=== PATIENT | female | born 1990 | race Caucasian/White ===

== ENCOUNTER 2017-01-02 20:04 | Emergency (ER) | payer OTHER ==
[2017-01-02 20:15] VITALS: BP 115/76; PULSE 94; RESP 20; TEMP 98.3
[2017-01-02] MEDS ORDERED: ONDANSETRON 4 MG/2 ML VIAL IVP STA (20:40)
[2017-01-02] MEDS ORDERED: MORPHINE SULFATE 4 MG/ML SYRINGE IV STA (20:40)
[2017-01-02] MEDS ORDERED: KETOROLAC 30 MG/ML 1 ML VIAL IVP STA (20:40)
[2017-01-02] MEDS ORDERED: SODIUM CHLORIDE 0.9% 1,000 ML IV STA ×2 (20:40)
[2017-01-02 20:58] LABS: Basophils % (A) 0 %; CH 32.7; Eosinophils # (A) 0.1 k/uL (0-0.7); Eosinophils % (A) 2 %; HCT 40.2 % (34.0-46.0); HDW 2.51; HGB 13.9 gm/dL (11.4-16.0); Luc # (Auto) 0.12; Luc % (Auto) 2; Lymphocytes # (A) 2.3 k/uL (1.0-4.8); Lymphocytes % (A) 35 %; MCH 32.5 pg (25.0-35.0); MCHC 34.7 g/dL (31.0-37.0); MCV 93.7 fL (80.0-100.0); Mean Platelet Volume 7.8; Monocytes # (A) 0.4 k/uL (0-1.0); Monocytes % (A) 7 %; Neutrophils # (A) 3.5 k/uL (1.3-7.7); Neutrophils % (A) 54 %; RBC 4.29 m/uL (3.80-5.40); RDW 11.6 % (11.5-15.5); WBC 6.4 k/uL (3.8-10.6); WBC (Perox) 6.32
--- NOTE | 2017-01-02 21:07 | ED ---
Abdominal Pain HPI - General Chief Complaint: Abdominal Pain Stated Complaint: Abd Pain Time Seen by Provider: 01/02/17 20:19 Source: patient, RN notes reviewed, old records reviewed Mode of arrival: ambulatory Limitations: no limitations - History of Present Illness Initial Comments: This is a 26-year-old female presenting to the emergency Department chief complaint of acute right lower quadrant pain. Patient reports that she's had this pain go off and on no for the past month. She was seen earlier today at [facility]. Received a CAT scan, and blood work. They thought that she may have had a kidney stone but they did not see any ureter stones on the CAT scan. Patient reports that she's had history of ovarian cysts. states that she had her Nexplanon Replaced on December [address] Granados. Patient states that she was sent home with no nausea or pain medication. She reports that when she went home the pain returned and became more so she decided be reevaluated. Denies any nausea or vomiting. - Related Data Previous Rx's Medication Instructions Recorded Ondansetron Odt [Zofran Odt] 4 mg PO Q8HR PRN #12 tab 01/02/17 traMADol HCl [Ultram] 50 mg PO Q4H PRN #12 tab 01/02/17 Allergies Allergy/AdvReac Type Severity Reaction Status Date / Time Sulfa (Sulfonamide Allergy Rash/Hives Verified 01/02/17 22:50 Antibiotics) metoclopramide HCl AdvReac tachycardia Verified 01/02/17 22:50 [From Reglan] promethazine HCl AdvReac twitching Verified 01/02/17 22:50 [From Phenergan] Review of Systems ROS Statement: Those systems with pertinent positive or pertinent negative responses have been documented in the HPI. ROS Other: All systems not noted in ROS Statement are negative. Past Medical History Past Medical History: No Reported History Additional Past Medical History / Comment(s): Obstetric history: First was a vaginal delivery at 40 weeks, 8#. This is her second and she has had care with Dr Koo since 7 weeks gestation. O+ abs neg, Rub nonimmune, RPR NR, Hep B neg, HIV NR. GBS neg History of Any Multi-Drug Resistant Organisms: None Reported Past Surgical History: No Surgical Hx Reported Additional Past Surgical History / Comment(s): laparoscopy for ovarian cyst Past Anesthesia/Blood Transfusion Reactions: No Reported Reaction Past Psychological History: No Psychological Hx Reported Smoking Status: Current every day smoker Past Alcohol Use History: None Reported Past Drug Use History: None Reported General Exam - General Exam Comments Initial Comments: 26-year-old female, patient appears to be somewhat anxious. Limitations: no limitations General appearance: alert, in no apparent distress Head exam: Present: atraumatic, normocephalic, normal inspection Eye exam: Present: normal appearance, PERRL, EOMI. Absent: scleral icterus, conjunctival injection, periorbital swelling ENT exam: Present: normal exam, mucous membranes moist Neck exam: Present: normal inspection. Absent: tenderness, meningismus, lymphadenopathy Respiratory exam: Present: normal lung sounds bilaterally. Absent: respiratory distress, wheezes, rales, rhonchi, stridor Cardiovascular Exam: Present: regular rate, normal rhythm, normal heart sounds. Absent: systolic murmur, diastolic murmur, rubs, gallop, clicks GI/Abdominal exam: Present: soft, tenderness (Right lower quadrant tenderness.) , normal bowel sounds. Absent: distended, guarding, rebound, rigid External exam: Present: normal external exam. Absent: erythema Speculum exam: Present: normal speculum exam. Absent: erythema, vaginal discharge, cervical discharge, vaginal bleeding By manual exam: Present: normal by manual exam. Absent: cervical motion tenderness, adnexal tenderness, adnexal mass, uterine enlargement Extremities exam: Present: normal inspection, full ROM, normal capillary refill. Absent: tenderness, pedal edema, joint swelling, calf tenderness Back exam: Present: normal inspection Neurological exam: Present: alert, oriented X3, CN II-XII intact Psychiatric exam: Present: normal affect, normal mood Skin exam: Present: warm, dry, intact, normal color. Absent: rash Course Vital Signs 01/02/17 20:13 Temperature 98.3 F Pulse Rate 94 Respiratory 20 Rate Blood Pressure 115/76 O2 Sat by Pulse 99 Oximetry Medical Decision Making - Medical Decision Making This is a 26-year-old female presenting to the emergency Department chief complaint of acute right lower quadrant pain. Patient reports that she's had this pain go off and on no for the past month. She was seen earlier today at [facility]. Received a CAT scan, and blood work. They thought that she may have had a kidney stone but they did not see any ureter stones on the CAT scan. Patient reports that she's had history of ovarian cysts. states that she had her Nexplanon Replaced on December [address] Holcomb. Patient lab work was reviewed , negative for any acute process. Patient did receive a CAT scan earlier today and I did review these results which showed evidence of right renal colliculi. Patient's transvaginal ultrasound shows no evidence of any abnormalities. At this time patient will be discharged with a short course of pain medicine. Discussed follow up with PCP. REturn parameters discussed. - Lab Data Result diagrams: 01/02/17 20:41 01/02/17 20:41 Lab Results 01/02/17 01/02/17 01/02/17 Range/Units 20:41 20:41 22:27 WBC 6.4 (3.8-10.6) k/uL RBC 4.29 (3.80-5.40) m/uL Hgb 13.9 (11.4-16.0) gm/dL Hct 40.2 (34.0-46.0) % MCV 93.7 (80.0-100.0) fL MCH 32.5 (25.0-35.0) pg MCHC 34.7 (31.0-37.0) g/dL RDW 11.6 (11.5-15.5) % Plt Count 204 (150-450) k/uL Neutrophils % 54 % Lymphocytes % 35 % Monocytes % 7 % Eosinophils % 2 % Basophils % 0 % Neutrophils # 3.5 (1.3-7.7) k/uL Lymphocytes # 2.3 (1.0-4.8) k/uL Monocytes # 0.4 (0-1.0) k/uL Eosinophils # 0.1 (0-0.7) k/uL Basophils # 0.0 (0-0.2) k/uL Sodium 142 (137-145) mmol/L Potassium 3.9 (3.5-5.1) mmol/L Chloride 109 H (98-107) mmol/L Carbon Dioxide 22 (22-30) mmol/L Anion Gap 11 mmol/L BUN 12 (7-17) mg/dL Creatinine 0.63 (0.52-1.04) mg/dL Est GFR (MDRD) Af Amer >60 (>60 ml/min/1.73 sqM) Est GFR (MDRD) Non-Af >60 (>60 ml/min/1.73 sqM) Glucose 95 (74-99) mg/dL Calcium 9.5 (8.4-10.2) mg/dL Total Bilirubin 0.3 (0.2-1.3) mg/dL AST 18 (14-36) U/L ALT 33 (9-52) U/L Alkaline Phosphatase 97 (38-126) U/L Total Protein 6.5 (6.3-8.2) g/dL Albumin 3.9 (3.5-5.0) g/dL Amylase 54 (30-110) U/L Lipase 269 (23-300) U/L Urine Color Urine Appearance (Clear) Urine pH (5.0-8.0) Ur Specific [place] (1.001-1.035) Urine Protein (Negative) Urine Glucose (UA) (Negative) Urine Ketones (Negative) Urine Blood (Negative) Urine Nitrite (Negative) Urine Bilirubin (Negative) Urine Urobilinogen (<2.0) mg/dL Ur Leukocyte Esterase (Negative) Urine RBC (0-5) /hpf Urine WBC (0-5) /hpf Ur Squamous Epith Cells (0-4) /hpf Urine Mucus (None) /hpf Urine HCG, Qual Not Detected (Not Detectd) Trichomonas Ag (Rapid) (Negative) 01/02/17 01/02/17 Range/Units 22:27 22:27 WBC (3.8-10.6) k/uL RBC (3.80-5.40) m/uL Hgb (11.4-16.0) gm/dL Hct (34.0-46.0) % MCV (80.0-100.0) fL MCH (25.0-35.0) pg MCHC (31.0-37.0) g/dL RDW (11.5-15.5) % Plt Count (150-450) k/uL Neutrophils % % Lymphocytes % % Monocytes % % Eosinophils % % Basophils % % Neutrophils # (1.3-7.7) k/uL Lymphocytes # (1.0-4.8) k/uL Monocytes # (0-1.0) k/uL Eosinophils # (0-0.7) k/uL Basophils # (0-0.2) k/uL Sodium (137-145) mmol/L Potassium (3.5-5.1) mmol/L Chloride (98-107) mmol/L Carbon Dioxide (22-30) mmol/L Anion Gap mmol/L BUN (7-17) mg/dL Creatinine (0.52-1.04) mg/dL Est GFR (MDRD) Af Amer (>60 ml/min/1.73 sqM) Est GFR (MDRD) Non-Af (>60 ml/min/1.73 sqM) Glucose (74-99) mg/dL Calcium (8.4-10.2) mg/dL Total Bilirubin (0.2-1.3) mg/dL AST (14-36) U/L ALT (9-52) U/L Alkaline Phosphatase (38-126) U/L Total Protein (6.3-8.2) g/dL Albumin (3.5-5.0) g/dL Amylase (30-110) U/L Lipase (23-300) U/L Urine Color Yellow Urine Appearance Cloudy H (Clear) Urine pH 6.0 (5.0-8.0) Ur Specific [place] 1.020 (1.001-1.035) Urine Protein Negative (Negative) Urine Glucose (UA) Negative (Negative) Urine Ketones 1+ H (Negative) Urine Blood Small H (Negative) Urine Nitrite Negative (Negative) Urine Bilirubin Negative (Negative) Urine Urobilinogen <2.0 (<2.0) mg/dL Ur Leukocyte Esterase Negative (Negative) Urine RBC 9 H (0-5) /hpf Urine WBC 1 (0-5) /hpf Ur Squamous Epith Cells 3 (0-4) /hpf Urine Mucus Rare H (None) /hpf Urine HCG, Qual (Not Detectd) Trichomonas Ag (Rapid) Negative (Negative) - Radiology Data Radiology results: report reviewed Disposition Clinical Impression: RLQ abdominal pain, Hematuria Disposition: HOME SELF-CARE Condition: Good Instructions: Abdominal Pain (ED) Additional Instructions: Advised to take the pain medication, and follow up with PCP. Return to ED if any alarming signs or symptoms. Prescriptions: Ondansetron Odt [Zofran Odt] 4 mg PO Q8HR PRN #12 tab PRN Reason: Nausea traMADol HCl [Ultram] 50 mg PO Q4H PRN #12 tab PRN Reason: Pain Referrals: Jose Angel Nuñez MD [Primary Care Provider] - 1-2 days Time of Disposition: 23:11
[2017-01-02 21:12] LABS: ALT 33 U/L (9-52); AST 18 U/L (14-36); Alkaline Phosphatase 97 U/L (38-126); Amylase 54 U/L (30-110); Anion Gap 11 mmol/L; Blood Urea Nitrogen 12 mg/dL (7-17); Calcium 9.5 mg/dL (8.4-10.2); Carbon Dioxide 22 mmol/L (22-30); Chloride 109 mmol/L (98-107); Glucose 95 mg/dL (74-99); Non-African American GFR(MDRD) >60 (>60 ml/min/1.73 sqM); Potassium 3.9 mmol/L (3.5-5.1); Sodium 142 mmol/L (137-145); Total Bilirubin 0.3 mg/dL (0.2-1.3); Total Protein 6.5 g/dL (6.3-8.2)
--- NOTE | 2017-01-02 22:00 | US ---
EXAMINATION TYPE: US transvaginal DATE OF EXAM: 01/02/2017 COMPARISON: NONE CLINICAL HISTORY: Pain. RLQ pain TECHNIQUE: Transvaginal (TV) Date of LMP: Unknown EXAM MEASUREMENTS: Uterus: 7.4 x 3.6 4.5 cm Endometrial Stripe: 0.5 cm Right Ovary: 2.1 x 1.6 x 1.6 cm Left Ovary: 3.1 x 1.3 x 1.3 cm 1. Uterus: Anteverted wnl 2. Endometrium: wnl 3. Right Ovary: wnl 4. Left Ovary: wnl Spectral, color and waveform doppler imaging shows good arterial and venous flow within the ovaries ; there is no evidence for ovarian torsion. 5. Bilateral Adnexa: wnl 6. Posterior cul-de-sac: wnl Bilateral ovarian doppler flow visualized IMPRESSION: Normal uterus and endometrium. Negative transvaginal pelvic sonogram.
[2017-01-02 22:52] LABS: Appearance,Urine Cloudy (Clear); Bilirubin,Urine Negative (Negative); Glucose,Urine (UA) Negative (Negative); Ketones,Urine 1+ (Negative); Leukocyte Esterase,Urine Negative (Negative); Mucus,Urine Rare /hpf; Nitrite,Urine Negative (Negative); Particle Count 4617; Protein,Urine Negative (Negative); RBC,Urine 9 /hpf (0-5); Squamous Epithelial Cell,Urine 3 /hpf (0-4); UA Billing (MACRO vs. MICRO) MICRO; Urobilinogen,Urine <2.0 mg/dL (<2.0); WBC,Urine 1 /hpf (0-5)
== END 2017-01-02 23:26 | disposition home or self-care (01) ==
LOC: EC 20:04
DX: R10.31 Right lower quadrant pain (principal); R31.9 Hematuria, unspecified; F17.200 Nicotine dependence, unspecified, uncomplicated; Z88.2 Allergy status to sulfonamides; Z88.8 Allergy status to other drugs, medicaments and biological substances
CPT/HCPCS: 36415; 80053; 87591; 87491; 82150; 83690; 85025; 81001; 81025; 87808; 87070; 87205; 76830; 99285; 96374; 96375 ×2; 96361 ×2; J2270; J2405; J1885

== ENCOUNTER → 2017-11-11 | Outpatient (CLI) | payer OTHER ==
--- NOTE | 2017-11-11 22:38 | US ---
EXAMINATION TYPE: US kidneys/renal and bladder DATE OF EXAM: 11/11/2017 COMPARISON: NONE CLINICAL HISTORY: 27-year-old female Kidney Stone N20.0. Right flank pain. History of kidney stones TECHNIQUE: Multiple sonographic images of the kidneys and bladder are obtained. FINDINGS: Right Kidney: 11.7 x 4.8 x 4.8 cm with mild hydronephrosis. There is an 8 mm echogenic calculus at t he lower pole. Left Kidney: 10.5 x 5.3 x 5.4 cm without hydronephrosis. Bladder: appears wnl as visualized Bilateral Jets seen: yes , but the right ureteral jet appears slightly weaker. IMPRESSION: Mild hydronephrosis on the right. In addition, there is an 8 mm lower pole right renal calculus.
== END | disposition home or self-care (01) ==
LOC: RADUSWWP 15:11
PROVIDERS: ATTEND Family Medicine
DX: N13.30 Unspecified hydronephrosis (principal); N20.0 Calculus of kidney; Z88.8 Allergy status to other drugs, medicaments and biological substances; Z88.2 Allergy status to sulfonamides
CPT/HCPCS: 76770

== ENCOUNTER 2018-02-13 17:00 | Emergency (ER) | payer OTHER ==
[2018-02-13] MEDS ORDERED: LIDOCAINE 1% INJ 10MG/ML (20 ML MDV) SQ STA (17:46)
--- NOTE | 2018-02-13 18:12 | ED ---
Extremity Problem HPI - General Chief complaint: Extremity Problem,Nontraumatic Stated complaint: Ingrown toenail, foot swelling Time Seen by Provider: 02/13/18 17:25 Source: patient, RN notes reviewed, old records reviewed Mode of arrival: ambulatory Limitations: no limitations - History of Present Illness Initial comments: Patient is a 27 year old female, that states about 2 weeks ago she cut her toe nails short and thought she developed an ingrown toe nail on her left big toe. Patient has been on Keflex for 6 days. Patient reports she tried to dig out her nail, but was unable to. She sees currency exchange specialist on Friday. - Related Data Previous Rx's Medication Instructions Recorded Ondansetron Odt [Zofran Odt] 4 mg PO Q8HR PRN #12 tab 01/02/17 traMADol HCl [Ultram] 50 mg PO Q4H PRN #12 tab 01/02/17 Ciprofloxacin HCl [Cipro] 500 mg PO Q12HR 10 Days tab 02/13/18 Allergies Allergy/AdvReac Type Severity Reaction Status Date / Time Sulfa (Sulfonamide Allergy Rash/Hives Verified 02/13/18 17:17 Antibiotics) metoclopramide HCl AdvReac tachycardia Verified 02/13/18 17:17 [From Reglan] promethazine HCl AdvReac twitching Verified 02/13/18 17:17 [From Phenergan] Review of Systems ROS Statement: Those systems with pertinent positive or pertinent negative responses have been documented in the HPI. ROS Other: All systems not noted in ROS Statement are negative. Past Medical History Past Medical History: No Reported History Additional Past Medical History / Comment(s): Obstetric history: First was a vaginal delivery at 40 weeks, 8#. This is her second and she has had care with Dr Koo since 7 weeks gestation. O+ abs neg, Rub nonimmune, RPR NR, Hep B neg, HIV NR. GBS neg History of Any Multi-Drug Resistant Organisms: None Reported Past Surgical History: No Surgical Hx Reported Additional Past Surgical History / Comment(s): laparoscopy for ovarian cyst Past Anesthesia/Blood Transfusion Reactions: No Reported Reaction Past Psychological History: No Psychological Hx Reported Smoking Status: Current every day smoker Past Alcohol Use History: None Reported Past Drug Use History: None Reported General Exam - General Exam Comments Initial Comments: 27 year old female, no acute distress. Limitations: no limitations General appearance: alert, in no apparent distress Head exam: Present: atraumatic, normocephalic, normal inspection Eye exam: Present: normal appearance, PERRL, EOMI. Absent: scleral icterus, conjunctival injection, periorbital swelling ENT exam: Present: normal exam, mucous membranes moist Neck exam: Present: normal inspection. Absent: tenderness, meningismus, lymphadenopathy Respiratory exam: Present: normal lung sounds bilaterally. Absent: respiratory distress, wheezes, rales, rhonchi, stridor Left Ankle exam: Present: normal inspection, full ROM Foot/Toe exam: Present: tenderness, swelling (over medial great toenail). Absent: normal inspection Neurovascular tendon exam: Present: no vascular compromise 1 - Swelling, erythema Course Vital Signs 02/13/18 02/13/18 17:15 18:50 Temperature 98.1 F 98.7 F Pulse Rate 100 68 Respiratory 20 16 Rate Blood Pressure 128/81 115/55 O2 Sat by Pulse 99 98 Oximetry Medical Decision Making - Medical Decision Making This is a 27 year old female with left ingrown toenail. Toenail was cleaned with iodine, then 5mls of 1% lidocaine instilled by digital nerve block. Patient nail was then dissected from the swollen edge of the toe and removed. Discussed changing antibiotic to cipro. No culture of pus obtained. Discussed continue to follow up with podiatry. Discussed warm soaks over the toe. Return parameters discussed. Disposition Clinical Impression: Ingrown toenail of left foot Disposition: HOME SELF-CARE Condition: Good Instructions: Ingrown Nail (ED) Additional Instructions: Patient advisd to do any frequent warm soaks of the area. Follow-up with PCP. Return to emergency department if any alarming signs or symptoms occur. Prescriptions: Ciprofloxacin HCl [Cipro] 500 mg PO Q12HR 10 Days tab Is patient prescribed a controlled substance at d/c from ED?: No Referrals: Jose Angel Nuñez MD [Primary Care Provider] - 1-2 days Time of Disposition: 18:11
[2018-02-13 18:54] VITALS: BP 115/55; PULSE 68; RESP 16; TEMP 98.7
--- NOTE | 2018-02-14 06:04 | CDI ---
Documentation Clarification OP Dear MATTHEW Haque: Please do addendum to ED report for HPI , Physical exam and MDM. Thank you, Marely Sanchez Outreach Worker If you have any question, Please contact regional account manager at [phone] [facility]
== END 2018-02-13 18:50 | disposition home or self-care (01) ==
LOC: EC 17:00
DX: L60.0 Ingrowing nail (principal); F17.200 Nicotine dependence, unspecified, uncomplicated; Z88.2 Allergy status to sulfonamides; Z88.8 Allergy status to other drugs, medicaments and biological substances
CPT/HCPCS: 99283; 11730; J2001

== ENCOUNTER → 2019-03-24 | Outpatient (CLI) | payer OTHER ==
--- NOTE | 2019-03-24 16:09 | XR ---
EXAMINATION TYPE: XR IVP DATE OF EXAM: 03/24/2019 COMPARISON: Abdomen 08/22/2011 HISTORY: Urinary incontinence TECHNIQUE: IVP is performed following the intravenous administration of 100 mL [id number]. FINDINGS: There is a calcification over the mid right kidney measuring 0.7 cm. There is a calcificati on in left hemipelvis likely a phlebolith 0.4 cm. Psoas margins are normal There is prompt uptake and excretion of the contrast bilaterally. There is delayed excretion on the r ight which appears subtle compared to the left at 1 minute. The left ureter follows a normal caliber course and contour to the urinary bladder. Left renal infundibulum I renal pelvis is normal. There is dilation of the right renal calyces infundibula and renal pelvis. Proximal right ureter has mild pro minence to the level of the pelvic inlet. There is delayed contrast passing beyond the pelvic inlet. There is some cutoff of the distal ureter at the level of the pelvic inlet suggestive for overlying vascular structures. This may be present bi laterally. Distal ureters are unremarkable. Urinary bladder fills normally without intraluminal or extramural defects. There is normal post void residual. IMPRESSION: 1. Mild hesitancy and mild hydronephrosis of the right kidney. 2. 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 Hesitancy is present on the right compared to the left.
== END | disposition home or self-care (01) ==
LOC: RADFLMAIN 10:07
PROVIDERS: ATTEND Family Medicine
DX: N13.30 Unspecified hydronephrosis (principal); R39.11 Hesitancy of micturition; Z88.1 Allergy status to other antibiotic agents; Z88.2 Allergy status to sulfonamides
CPT/HCPCS: 74400; Q9967

== ENCOUNTER 2019-04-04 14:05 | Emergency (ER) | payer OTHER ==
[2019-04-04 15:02] VITALS: RESP 16; TEMP 98
[2019-04-04] MEDS ORDERED: SODIUM CHLORIDE 0.9% 1,000 ML IV STA (15:50)
[2019-04-04] MEDS ORDERED: ONDANSETRON 4 MG/2 ML VIAL IVP STA (15:50)
[2019-04-04] MEDS ORDERED: KETOROLAC 30 MG/ML 1 ML VIAL IVP STA (15:50)
[2019-04-04 15:56] LABS: Appearance,Urine Cloudy (Clear); Bacteria,Urine Occasional /hpf; Bilirubin,Urine Negative (Negative); Blood,Urine Moderate (Negative); Color,Urine Yellow; Glucose,Urine (UA) Negative (Negative); Ketones,Urine Negative (Negative); Leukocyte Esterase,Urine Negative (Negative); Mucus,Urine Moderate /hpf; Nitrite,Urine Negative (Negative); PH, Urine 5.5 (5.0-8.0); Protein,Urine Negative (Negative); RBC,Urine 152 /hpf (0-5); Specific Gravity,Urine 1.014 (1.001-1.035); Squamous Epithelial Cell,Urine 35 /hpf (0-4); Urobilinogen,Urine <2.0 mg/dL (<2.0); WBC,Urine 2 /hpf (0-5)
--- NOTE | 2019-04-04 16:24 | ED ---
Female Urogenital HPI - General Chief complaint: Urogenital Stated complaint: poss kidney stone Time Seen by Provider: 04/04/19 15:23 Source: patient Limitations: no limitations - History of Present Illness Initial comments: Patient is a 28-year-old female presenting to the emergency Department with complaints of right-sided flank pain that started yesterday. Patient states she went to [facility] yesterday for evaluation and had lab work as well as a computed tomography scan performed. She states the computed tomography scan showed a right kidney stone as well as an ovarian cyst. Patient states she returned today to the ER because she feels like she does not take well taken care of at the other hospital and feels like she is very sick. She is complaining of fatigue as well as nausea. Patient states she is having history of kidney stones and this feels similar. Patient has history of kidney issues and recently had an x-ray IVP on 03/24/[address] Nuñez. The results were reviewed and showed a right-sided kidney stone measuring 7 mm. Patient is also complaining of intermittent chest pain when her right flank pain intensifies. Patient states his episodes only last a few seconds. She is not presently having chest pain. Patient denies shortness of breath, fever, chills. Patient has no other complaints at this time. Upon arrival to the ER, her vital signs are stable. Of note, patient states she is currently being worked up for a possible autoimmune disease. - Related Data Previous Rx's Medication Instructions Recorded Ondansetron Odt [Zofran Odt] 4 mg PO Q8HR PRN #12 tab 01/02/17 traMADol HCl [Ultram] 50 mg PO Q4H PRN #12 tab 01/02/17 Ciprofloxacin HCl [Cipro] 500 mg PO Q12HR 10 Days tab 02/13/18 Ketorolac [Toradol] 10 mg PO Q8HR #15 tab 04/04/19 Ondansetron Odt [Zofran Odt] 4 mg PO Q8HR PRN #10 tab 04/04/19 Allergies Allergy/AdvReac Type Severity Reaction Status Date / Time Sulfa (Sulfonamide Allergy Rash/Hives Verified 04/04/19 15:02 Antibiotics) metoclopramide HCl AdvReac tachycardia Verified 04/04/19 15:02 [From Reglan] promethazine HCl AdvReac twitching Verified 04/04/19 15:02 [From Phenergan] Review of Systems ROS Statement: Those systems with pertinent positive or pertinent negative responses have been documented in the HPI. ROS Other: All systems not noted in ROS Statement are negative. Past Medical History Past Medical History: No Reported History Additional Past Medical History / Comment(s): Obstetric history: First was a vaginal delivery at 40 weeks, 8#. This is her second and she has had care with Dr Koo since 7 weeks gestation. O+ abs neg, Rub nonimmune, RPR NR, Hep B neg, HIV NR. GBS neg History of Any Multi-Drug Resistant Organisms: None Reported Past Surgical History: No Surgical Hx Reported Additional Past Surgical History / Comment(s): laparoscopy for ovarian cyst Past Anesthesia/Blood Transfusion Reactions: No Reported Reaction Past Psychological History: No Psychological Hx Reported Smoking Status: Current every day smoker Past Alcohol Use History: None Reported Past Drug Use History: None Reported General Exam - General Exam Comments Initial Comments: GENERAL: Well-appearing, well-nourished and in no acute distress, but looks uncomfortable laying on her right side. HEAD: Atraumatic, normocephalic. EYES: Pupils equal round and reactive to light, extraocular movements intact, sclera anicteric, conjunctiva are normal. ENT: TMs normal, nares patent, oropharynx clear without exudates. Moist mucous mem branes. NECK: Normal range of motion, supple without lymphadenopathy or JVD. LUNGS: Breath sounds clear to auscultation bilaterally and equal. No wheezes rales or rhonchi. HEART: Regular rate and rhythm without murmurs, rubs or gallops. ABDOMEN: Right-sided abdominal pain, right flank pain. Soft, normoactive bowel sounds. No guarding, no rebound. No masses appreciated. : Deferred, declined EXTREMITIES: Normal range of motion, no pitting or edema. No clubbing or cyanosis. NEUROLOGICAL: Normal speech, normal gait. PSYCH: Normal mood, normal affect. SKIN: Warm, Dry, normal turgor, no rashes or lesions noted. Limitations: no limitations Course Vital Signs 04/04/19 04/04/19 04/04/19 15:00 15:02 16:02 Temperature 98 F Pulse Rate 96 89 80 Respiratory 16 16 16 Rate Blood Pressure 113/81 120/75 114/78 O2 Sat by Pulse 98 98 98 Oximetry 04/04/19 17:02 Temperature Pulse Rate 90 Respiratory 16 Rate Blood Pressure 116/80 O2 Sat by Pulse 98 Oximetry Medical Decision Making - Medical Decision Making Patient is a 28-year-old female presenting with right-sided flank pain for 2 days. Patient was seen at [facility] yesterday and had computed tomography scan. Results were reviewed. Vital signs are stable, afebrile. Patient is also complaining of intermittent chest pain. She thinks it is due to her anxiety. EKG is normal. Lab work shows no acute abnormalities. Troponin is normal. UA shows no signs of infection, moderate amount of blood. A KUB shows 5 mm renal stone in the lower pole right kidney. No other acute abnormalities. Patient was given fluids, Toradol, Zofran and she reports improvement in her symptoms. I recommended a vaginal exam secondary to a right ovarian cyst that was seen on computed tomography scan yesterday. Patient declined at this time stating she does see her P[facility]ER HANGER at the end of this week. Patient is stable for discharge at this time. I reviewed all findings with patient. Patient will be discharged home with Toradol as well as Zofran as needed for symptom control. Patient will also follow up with her urologist next week. Patient is in agreement with this plan of care. Return parameters were discussed with the patient she verbalized understanding. Case discussed with Dr. Osorio. - Lab Data Result diagrams: 04/04/19 16:02 04/04/19 16:02 Lab Results 04/04/19 04/04/19 04/04/19 Range/Units 14:00 16:02 16:02 WBC 2.9 L (3.8-10.6) k/uL RBC 4.06 (3.80-5.40) m/uL Hgb 13.7 (11.4-16.0) gm/dL Hct 38.9 (34.0-46.0) % MCV 95.8 (80.0-100.0) fL MCH 33.7 (25.0-35.0) pg MCHC 35.2 (31.0-37.0) g/dL RDW 11.4 L (11.5-15.5) % Plt Count 175 (150-450) k/uL Neutrophils % 48 % Lymphocytes % 42 % Monocytes % 6 % Eosinophils % 3 % Basophils % 0 % Neutrophils # 1.4 (1.3-7.7) k/uL Lymphocytes # 1.2 (1.0-4.8) k/uL Monocytes # 0.2 (0-1.0) k/uL Eosinophils # 0.1 (0-0.7) k/uL Basophils # 0.0 (0-0.2) k/uL Sodium 138 (137-145) mmol/L Potassium 4.1 (3.5-5.1) mmol/L Chloride 107 (98-107) mmol/L Carbon Dioxide 23 (22-30) mmol/L Anion Gap 8 mmol/L BUN 7 (7-17) mg/dL Creatinine 0.54 (0.52-1.04) mg/dL Est GFR (CKD-EPI)AfAm >90 (>60 ml/min/1.73 sqM) Est GFR (CKD-EPI)NonAf >90 (>60 ml/min/1.73 sqM) Glucose 77 (74-99) mg/dL Calcium 8.8 (8.4-10.2) mg/dL Total Bilirubin 0.3 (0.2-1.3) mg/dL AST 24 (14-36) U/L ALT 28 (4-34) U/L Alkaline Phosphatase 91 (38-126) U/L Troponin I (0.000-0.034) ng/mL Total Protein 6.4 (6.3-8.2) g/dL Albumin 3.9 (3.5-5.0) g/dL Urine Color Yellow Urine Appearance Cloudy H (Clear) Urine pH 5.5 (5.0-8.0) Ur Specific [place] 1.014 (1.001-1.035) Urine Protein Negative (Negative) Urine Glucose (UA) Negative (Negative) Urine Ketones Negative (Negative) Urine Blood Moderate H (Negative) Urine Nitrite Negative (Negative) Urine Bilirubin Negative (Negative) Urine Urobilinogen <2.0 (<2.0) mg/dL Ur Leukocyte Esterase Negative (Negative) Urine RBC 152 H (0-5) /hpf Urine WBC 2 (0-5) /hpf Ur Squamous Epith Cells 35 H (0-4) /hpf Urine Bacteria Occasional H (None) /hpf Urine Mucus Moderate H (None) /hpf 12/29/19 Range/Units 16:02 WBC (3.8-10.6) k/uL RBC (3.80-5.40) m/uL Hgb (11.4-16.0) gm/dL Hct (34.0-46.0) % MCV (80.0-100.0) fL MCH (25.0-35.0) pg MCHC (31.0-37.0) g/dL RDW (11.5-15.5) % Plt Count (150-450) k/uL Neutrophils % % Lymphocytes % % Monocytes % % Eosinophils % % Basophils % % Neutrophils # (1.3-7.7) k/uL Lymphocytes # (1.0-4.8) k/uL Monocytes # (0-1.0) k/uL Eosinophils # (0-0.7) k/uL Basophils # (0-0.2) k/uL Sodium (137-145) mmol/L Potassium (3.5-5.1) mmol/L Chloride (98-107) mmol/L Carbon Dioxide (22-30) mmol/L Anion Gap mmol/L BUN (7-17) mg/dL Creatinine (0.52-1.04) mg/dL Est GFR (CKD-EPI)AfAm (>60 ml/min/1.73 sqM) Est GFR (CKD-EPI)NonAf (>60 ml/min/1.73 sqM) Glucose (74-99) mg/dL Calcium (8.4-10.2) mg/dL Total Bilirubin (0.2-1.3) mg/dL AST (14-36) U/L ALT (4-34) U/L Alkaline Phosphatase (38-126) U/L Troponin I <0.012 (0.000-0.034) ng/mL Total Protein (6.3-8.2) g/dL Albumin (3.5-5.0) g/dL Urine Color Urine Appearance (Clear) Urine pH (5.0-8.0) Ur Specific [place] (1.001-1.035) Urine Protein (Negative) Urine Glucose (UA) (Negative) Urine Ketones (Negative) Urine Blood (Negative) Urine Nitrite (Negative) Urine Bilirubin (Negative) Urine Urobilinogen (<2.0) mg/dL Ur Leukocyte Esterase (Negative) Urine RBC (0-5) /hpf Urine WBC (0-5) /hpf Ur Squamous Epith Cells (0-4) /hpf Urine Bacteria (None) /hpf Urine Mucus (None) /hpf - EKG Data EKG Comments: Ventricular rate 60, AL interval 158, QTC 420. Normal sinus rhythm, normal ECG. No acute ST segment changes. Disposition Clinical Impression: Right renal stone, Right sided abdominal pain Disposition: HOME SELF-CARE Condition: Stable Instructions (If sedation given, give patient instructions): Kidney Stones (ED) Additional Instructions: Please return to the Emergency Department if symptoms worsen or any other concerns. Follow-up with PCP, urologist, [facility] as discussed. Take medications as prescribed. Prescriptions: Ketorolac [Toradol] 10 mg PO Q8HR #15 tab Ondansetron Odt [Zofran Odt] 4 mg PO Q8HR PRN #10 tab PRN Reason: Nausea Is patient prescribed a controlled substance at d/c from ED?: No Referrals: Jose Angel Nuñez MD [Primary Care Provider] - 1-2 days
--- NOTE | 2019-04-04 16:36 | XR ---
EXAMINATION TYPE: XR KUB DATE OF EXAM: 04/04/2019 COMPARISON: 08/22/2011 HISTORY: Kidney stones. Pain. TECHNIQUE: 2 views upright FINDINGS: There is no sign of intestinal obstruction or pneumoperitoneum. Fecal pattern is normal. Th ere is no evidence of a mass. There is 5 mm calculus over the lower pole right kidney. Lung bases are clear. IMPRESSION: Calcification over the right kidney. Nonacute abdomen.
[2019-04-04 16:55] LABS: ALT 28 U/L (4-34); AST 24 U/L (14-36); African American GFR (CKD) >90 (>60 ml/min/1.73 sqM); Albumin 3.9 g/dL (3.5-5.0); Alkaline Phosphatase 91 U/L (38-126); Anion Gap 8 mmol/L; Blood Urea Nitrogen 7 mg/dL (7-17); Calcium 8.8 mg/dL (8.4-10.2); Carbon Dioxide 23 mmol/L (22-30); Chloride 107 mmol/L (98-107); Glucose 77 mg/dL (74-99); Non-African American GFR(CKD) >90 (>60 ml/min/1.73 sqM); Potassium 4.1 mmol/L (3.5-5.1); Sodium 138 mmol/L (137-145); Total Bilirubin 0.3 mg/dL (0.2-1.3); Total Protein 6.4 g/dL (6.3-8.2)
[2019-04-04 16:59] LABS: Basophils % (A) 0 %; Eosinophils # (A) 0.1 k/uL (0-0.7); Eosinophils % (A) 3 %; HCT 38.9 % (34.0-46.0); HGB 13.7 gm/dL (11.4-16.0); Lymphocytes # (A) 1.2 k/uL (1.0-4.8); Lymphocytes % (A) 42 %; MCH 33.7 pg (25.0-35.0); MCHC 35.2 g/dL (31.0-37.0); MCV 95.8 fL (80.0-100.0); Monocytes # (A) 0.2 k/uL (0-1.0); Monocytes % (A) 6 %; Neutrophils # (A) 1.4 k/uL (1.3-7.7); Neutrophils % (A) 48 %; Platelet Count 175 k/uL (150-450); RBC 4.06 m/uL (3.80-5.40); RDW 11.4 % (11.5-15.5); WBC 2.9 k/uL (3.8-10.6)
[2019-04-04 17:54] VITALS: BP 116/80; PULSE 90
== END 2019-04-04 17:58 | disposition home or self-care (01) ==
LOC: EC 14:05
DX: N20.0 Calculus of kidney (principal); N83.201 Unspecified ovarian cyst, right side; F17.200 Nicotine dependence, unspecified, uncomplicated; Z88.2 Allergy status to sulfonamides; Z88.8 Allergy status to other drugs, medicaments and biological substances
CPT/HCPCS: 36415; 93005; 80053; 84484; 85025; 81001; 74018; 99284; 96374; 96375; 96361; J2405; J1885

== ENCOUNTER → 2019-06-17 | Outpatient (CLI) | payer OTHER ==
--- NOTE | 2019-06-17 14:12 | US ---
EXAMINATION TYPE: US thyroid st tissue head/neck DATE OF EXAM: 06/17/2019 COMPARISON: NONE CLINICAL HISTORY: E04.9 goiter. Pt states recent abnormal labs/ pt states difficulty swallowing GLAND SIZE: Right Lobe: 5.1 x 2.0 x 1.8 cm Overall Parenchyma: heterogenous Left Lobe: 4.4 x 1.4 x 1.7 cm Overall Parenchyma: heterogeneous Isthmus Thickness: 0.2 cm NODULES RIGHT: # of nodules measured on right: 1 1. 1.6 X 1.1 x 1.1 cm hypoechoic solid nodule at the mid pole with poorly defined margins; This nod ule is wider than tall and shows intranodular vascularity. Prior size: No prior LEFT: No nodules Bilateral neck scanned, no evidence of lymphadenopathy. Poorly defined nodule right lobe >1cm. Diffus e glandular hypervascularity. IMPRESSION: 1. Right thyroid nodule is borderline in size for fine-needle aspiration. Consider either fine-needle aspiration or short-term follow-up in 6-12 months. 2. Diffusely hypervascular thyroid gland, consider thyroiditis. Correlate with serum laboratory value s.
== END | disposition home or self-care (01) ==
LOC: RADUSWWP 13:39
PROVIDERS: ATTEND Family Medicine
DX: E04.9 Nontoxic goiter, unspecified (principal); Z88.1 Allergy status to other antibiotic agents; Z88.2 Allergy status to sulfonamides
CPT/HCPCS: 76536

== ENCOUNTER → 2023-10-21 | Outpatient (CLI) | payer OTHER ==
[2023-10-21 15:52] LABS: Basophils # (A) 0.03 X 10*3/uL (0.00-0.10); Basophils % (A) 0.5 %; Eosinophils # (A) 0.06 X 10*3/uL (0.04-0.35); Eosinophils % (A) 1.1 %; HCT 38.7 % (37.2-46.3); HGB 13.3 g/dL (12.0-15.0); Lymphocytes # (A) 1.45 X 10*3/uL (0.90-5.00); MCH 33.7 pg (27.0-32.0); MCHC 34.4 g/dL (32.0-37.0); Mean Platelet Volume 10.4 FL (9.5-12.2); Monocytes # (A) 0.33 X 10*3/uL (0.20-1.00); Monocytes % (A) 5.9 %; NRBC Per 100 WBC 0 X 10*3/uL (0.00-0.01); Neutrophils # (A) 3.69 X 10*3/uL (1.80-7.70); Neutrophils % (A) 66.3 %; Platelet Count 240 X 10*3/uL (140-440); RBC 3.95 X 10*6/uL (4.10-5.20); RDW 11.4 % (11.5-14.5); WBC 5.57 X 10*3/uL (4.50-10.00)
[2023-10-21 16:19] LABS: Erythrocyte Sedimentation Rate 23 mm/Hr (0-20)
[2023-10-21 16:38] LABS: % Iron Saturation 27.89 (12.00-45.00); ALT 21 U/L (8-44); AST 20 U/L (13-35); Albumin 4.5 g/dL (3.8-4.9); Albumin/Globulin Ratio 1.61 Ratio (1.60-3.17); Alkaline Phosphatase 73 U/L (41-126); BUN/Creat Ratio 22.57 Ratio (12.00-20.00); Blood Urea Nitrogen 15.8 mg/dL (9.0-27.0); C Reactive Protein <0.30 mg/dL (0.00-0.80); Calcium 9.3 mg/dL (8.7-10.3); Carbon Dioxide 22.3 mmol/L (21.6-31.8); Chloride 102 mmol/L (96-109); Chol/HDL Ratio 3.69 Ratio; Ferritin 75.5 ng/mL (10.0-291.0); Globulin 2.8 g/dL (1.6-3.3); Glucose 90 mg/dL (70-110); Iron 111 UG/DL (50-170); LDL Cholesterol,Calculated 151.8 mg/dL (0.0-131.0); Potassium 4.4 mmol/L (3.5-5.5); Rheumatoid Factor, Qnt 15 IU/mL (0-15); Sodium 138 mmol/L (135-145); T4, Free (Free Thyroxine) 1.69 ng/dL (0.80-1.80); Total Bilirubin 0.4 mg/dL (0.3-1.2); Total Iron Binding Capacity 398 UG/DL (228-460); Total Protein 7.3 g/dL (6.2-8.2); VLDL Calculation 19.46 mg/dL (5.00-40.00)
== END | disposition home or self-care (01) ==
LOC: LABWHC1 08:41
PROVIDERS: ATTEND Physician Assistant Medical
DX: E55.9 Vitamin D deficiency, unspecified (principal); E78.5 Hyperlipidemia, unspecified; E03.9 Hypothyroidism, unspecified; M25.50 Pain in unspecified joint
CPT/HCPCS: 36415; 80053; 80061; 82306; 82728; 83036; 83540; 83550; 84439; 84443; 84481; 85025; 85652; 86038; 86039; 86140; 86431

== ENCOUNTER → 2023-10-23 | Outpatient (CLI) | payer OTHER ==
--- NOTE | 2023-10-28 07:59 | MM ---
Reason for Exam: Screening (asymptomatic). Patient History: Menarche at age 12. First Full-Term at age 20. Premenopausal. Currently using Hormonal Contraceptives, starting at age 23. Maternal grandmother had breast cancer, age 45. Risk Values: Cheri 5 year model risk: 0.2%. NCI Lifetime model risk: 8.4%. Tissue Density: There are scattered areas of fibroglandular density. Findings: Analyzed By CAD. There is no suspicious group of microcalcifications or new suspicious mass in either breast. Overall Assessment: Benign, BI-RAD 2 Management: Screening Mammogram of both breasts in 1 year. . Patient should continue monthly self-breast exams. A clinical breast exam by your physician is recommended on an annual basis. This exam should not preclude additional follow-up of suspicious palpable abnormalities. Note on Cheri scores and lifetime risk: 1. A Cheri score greater than 3% is considered moderate risk. If this is the case, consider specialist referral to assess eligibility for a risk reducing agent. 2. If overall lifetime risk for the development of breast cancer is 20% or higher, the patient may qualify for future screening with alternating mammogram and breast MRI. Electronically signed and approved by: Jaime Husain M.D. Radiologis
== END | disposition home or self-care (01) ==
LOC: RADMAMWWP 13:30
PROVIDERS: ATTEND Family Medicine
DX: Z12.31 Encounter for screening mammogram for malignant neoplasm of breast (principal); R92.323 Mammographic fibroglandular density, bilateral breasts; Z80.3 Family history of malignant neoplasm of breast
CPT/HCPCS: 77063; 77067

== ENCOUNTER → 2024-02-12 | Outpatient (CLI) | payer OTHER ==
--- NOTE | 2024-02-12 12:13 | XR ---
EXAMINATION TYPE: XR chest 2V DATE OF EXAM: 02/12/2024 12:03 PM COMPARISON: None. CLINICAL INDICATION: Female, 33 years old with history of R76.8 OTHER SPECIFIED ABNORMAL IMMUNOLOGICA L FINDINGS IN SER, TECHNIQUE: XR chest 2V view(s) obtained. FINDINGS: The heart size is normal. The pulmonary vasculature is normal. The lungs are clear. IMPRESSION: 1. No acute pulmonary process. [facility], , 02/12/2024 12:11 PM
[2024-02-12 13:54] LABS: Creatinine,Urine Random 387.6 mg/dL
[2024-02-12 15:25] LABS: Hepatitis B Surface Antigen Nonreactive (Nonreactive); Hepatitis C IgG Antibody Nonreactive (Nonreactive)
[2024-02-12 15:29] LABS: Basophils # (A) 0.02 X 10*3/uL (0.00-0.10); Basophils % (A) 0.5 %; Eosinophils # (A) 0.01 X 10*3/uL (0.04-0.35); Eosinophils % (A) 0.2 %; HCT 33.7 % (37.2-46.3); HGB 11.8 g/dL (12.0-15.0); Lymphocytes # (A) 1.28 X 10*3/uL (0.90-5.00); Lymphocytes % (A) 30.9 %; MCH 33.1 pg (27.0-32.0); MCV 94.4 FL (80.0-97.0); Monocytes # (A) 0.27 X 10*3/uL (0.20-1.00); Monocytes % (A) 6.5 %; NRBC Per 100 WBC 0 X 10*3/uL (0.00-0.01); Neutrophils # (A) 2.55 X 10*3/uL (1.80-7.70); Neutrophils % (A) 61.7 %; Platelet Count 200 X 10*3/uL (140-440); RBC 3.57 X 10*6/uL (4.10-5.20); RDW 11.5 % (11.5-14.5); WBC 4.14 X 10*3/uL (4.50-10.00)
[2024-02-12 15:30] LABS: ALT 11 U/L (8-44); AST 11 U/L (13-35); Albumin 4.4 g/dL (3.8-4.9); Albumin/Globulin Ratio 1.91 Ratio (1.60-3.17); Alkaline Phosphatase 61 U/L (41-126); BUN/Creat Ratio 22.83 Ratio (12.00-20.00); Blood Urea Nitrogen 13.7 mg/dL (9.0-27.0); Calcium 9.2 mg/dL (8.7-10.3); Carbon Dioxide 21.9 mmol/L (21.6-31.8); Chloride 106 mmol/L (96-109); Creatine Kinase 56 U/L (26-186); Globulin 2.3 g/dL (1.6-3.3); Glucose 125 mg/dL (70-110); Potassium 3.9 mmol/L (3.5-5.5); Sodium 139 mmol/L (135-145); Total Bilirubin 0.4 mg/dL (0.3-1.2); Total Protein 6.7 g/dL (6.2-8.2)
[2024-02-12 18:00] LABS: Anti-DNA, DS unit <1.0 IU/mL; Cardiolipin Ab IgG Interp Positive (Negative); Cardiolipin Ab IgM Interp Negative (Negative); Cardiolipin IgA Antibody <2.0 U/mL; Cardiolipin IgM Antibody <1.5 U/mL; DNA Double-Stranded Negative (Negative); JO-1 IgG Antibody <0.2 AI
[2024-02-12 18:01] LABS: Anti-Smith Ab Interp Negative (Negative)
[2024-02-12 18:10] LABS: Appearance,Urine Turbid (Clear); Bacteria,Urine 3+ (None Seen); Bilirubin,Urine Negative (Negative); Blood,Urine Trace (Negative); Calcium Oxalate Crystals,Urine Present (None Seen); Color,Urine Dark Yellow (Yellow); Ketones,Urine Trace (Negative); Mucus,Urine Present (None Seen); Nitrite,Urine Negative (Negative); PH, Urine 5.5; Specific Gravity,Urine >1.035 (1.001-1.030)
[2024-02-12 19:16] LABS: HIV 2 AB Non-Reactive (Non-Reactive); HIV AB P24 Non-Reactive (Non-Reactive); HIV P24 AG Non-Reactive (Non-Reactive)
[2024-02-13 11:35] LABS: APTT 38 Sec(s) (<43); Dilute Russell Viper Venom 32 Sec(s) (<44)
== END | disposition home or self-care (01) ==
LOC: LABWHC1 10:54
PROVIDERS: ATTEND Student in an Organized Health Care Education/Training Program
DX: R76.8 Other specified abnormal immunological findings in serum (principal)
CPT/HCPCS: 36415; 71046; 80053; 81001; 82306; 82550; 82570; 84156; 85025; 85613; 85730; 86038; 86039; 86147; 86160; 86225; 86235; 86480; 86706; 86780; 86803; 87340; 87390

== ENCOUNTER → 2024-02-25 | Outpatient (CLI) | payer OTHER ==
--- NOTE | 2024-02-25 15:39 | US ---
EXAMINATION TYPE: US kidneys/renal and bladder DATE OF EXAM: 02/25/2024 COMPARISON: US 2017, CT 2014 CLINICAL INDICATION: Female, 33 years old with history of R10.9 ABDOMINAL PAIN; Hx stones. Flank pain right side. TECHNIQUE: Grayscale imaging of the bilateral kidneys and urinary bladder: FINDINGS: EXAM MEASUREMENTS: Right Kidney: 11.3 x 5.3 x 3.9 cm Left Kidney: 10.5 x 4.6 x 5.1 cm Right Kidney: *Hyperechoic focus with posterior shadowing seen lower pole= 1.0 x 0.8 x 0.6 cm. Hyperechoic focus seen mid = 0.5 x 0.6 x 0.3 cm. Left Kidney: *Hypoechoic area seen upper/medially = 2.0 x 1.7 x 2.0 cm. Bladder: Not properly evaluated. Patient not prepped, did not want to drink water to fill bladder. Bilateral Jets seen: No, unable to properly evaluate IMPRESSION: No obstructive uropathy. Right renal calculi, left renal cyst versus prominent, burden. [facility], , 02/25/2024 3:37 PM
[2024-02-25 18:14] LABS: Basophils # (A) 0.02 X 10*3/uL (0.00-0.10); Basophils % (A) 0.4 %; Eosinophils # (A) 0.05 X 10*3/uL (0.04-0.35); HCT 35.6 % (37.2-46.3); HGB 12.3 g/dL (12.0-15.0); Lymphocytes # (A) 2.07 X 10*3/uL (0.90-5.00); Lymphocytes % (A) 42.5 %; MCH 33.4 pg (27.0-32.0); MCHC 34.6 g/dL (32.0-37.0); MCV 96.7 FL (80.0-97.0); Mean Platelet Volume 10.4 FL (9.5-12.2); Monocytes # (A) 0.42 X 10*3/uL (0.20-1.00); Monocytes % (A) 8.6 %; NRBC Per 100 WBC 0 X 10*3/uL (0.00-0.01); Neutrophils # (A) 2.29 X 10*3/uL (1.80-7.70); Neutrophils % (A) 47.1 %; Platelet Count 210 X 10*3/uL (140-440); RBC 3.68 X 10*6/uL (4.10-5.20); RDW 11.5 % (11.5-14.5); WBC 4.87 X 10*3/uL (4.50-10.00)
[2024-02-25 18:27] LABS: ALT 10 U/L (8-44); AST 14 U/L (13-35); Albumin 4.4 g/dL (3.8-4.9); Albumin/Globulin Ratio 1.76 Ratio (1.60-3.17); Alkaline Phosphatase 61 U/L (41-126); BUN/Creat Ratio 14.43 Ratio (12.00-20.00); Blood Urea Nitrogen 10.1 mg/dL (9.0-27.0); Calcium 9.1 mg/dL (8.7-10.3); Carbon Dioxide 21.2 mmol/L (21.6-31.8); Chloride 105 mmol/L (96-109); Globulin 2.5 g/dL (1.6-3.3); Glucose 76 mg/dL (70-110); Potassium 3.7 mmol/L (3.5-5.5); Sodium 138 mmol/L (135-145); Total Bilirubin 0.4 mg/dL (0.3-1.2); Total Protein 6.9 g/dL (6.2-8.2)
== END | disposition home or self-care (01) ==
LOC: RADUSWWP 14:28
PROVIDERS: ATTEND Family Medicine
DX: N20.0 Calculus of kidney (principal)
CPT/HCPCS: 76770; 80053; 85025